=== PATIENT | female | born 1965 | race Caucasian/White ===

== ENCOUNTER 2017-04-02 15:00 | Outpatient (CLI) | payer BC ==
--- NOTE | 2017-04-02 16:11 | DIAGNOSTIC IMAGING REPORT ---
PROCEDURE: XR CERVICAL SPINE 2 OR 3 VIEW INDICATION: NECK PAIN TECHNIQUE: Three views. COMPARISON: None. FINDINGS: Normal alignment without fracture. Moderate disc degenerative changes with severe degenerative changes of the left facets at C4-5. Odontoid, lateral masses C1 and prevertebral soft tissues are normal. IMPRESSION: 1. Degenerative changes.
--- NOTE | 2017-04-02 16:12 | DIAGNOSTIC IMAGING REPORT ---
PROCEDURE: XR LUMBAR SPINE 2 OR 3 VIEWS INDICATION: LOW BACK PAIN TECHNIQUE: Three views. COMPARISON: None. FINDINGS: Normal alignment without fracture or suspicious osseous lesion. Normal disc spaces. Osteopenia. Soft tissues are unremarkable. IMPRESSION: 1. Osteopenia.
== END 2017-04-02 23:00 ==
LOC: XR SRH 15:00
DX: M54.2 Cervicalgia (principal); M50.30 Other cervical disc degeneration, unspecified cervical region; M85.80 Other specified disorders of bone density and structure, unspecified site